=== PATIENT | male | born 1965 | race Caucasian/White ===

== ENCOUNTER 2018-05-25 07:17 | Day surgery (SDC) | payer OTHER ==
[~2018-05-25] VITALS: Ht 180.3 cm; Wt 81.0 kg
--- NOTE | 2018-05-25 09:16 | NUR ---
05/25/18 0916 Lety Baez PT REFUSED DRINKS.
== END 2018-05-25 09:16 | disposition home or self-care (01) ==
LOC: ORSCSDS 07:17
PROVIDERS: Internal Medicine Gastroenterology
PROC: 0DBK8ZX Excision of Ascending Colon, Via Natural or Artificial Opening Endoscopic, Diagnostic (ICD-10-PCS; principal; 2018-05-25 08:30)
DX: Z12.11 Encounter for screening for malignant neoplasm of colon (principal); D12.2 Benign neoplasm of ascending colon; K64.8 Other hemorrhoids; K57.30 Diverticulosis of large intestine without perforation or abscess without bleeding; Z83.71 Family history of colonic polyps; K21.9 Gastro-esophageal reflux disease without esophagitis; Z87.891 Personal history of nicotine dependence
CPT/HCPCS: 88305; J0330; J1980; J2405; J7120

== ENCOUNTER 2024-04-18 08:15 | Day surgery (SDC) | payer OTHER ==
[~2024-04-18] VITALS: Ht 180.3 cm; Wt 91.1 kg
[~2024-04-18 08:15] MED LIST: Lactated Ringer's 1,000 ML IV ONE; propofoL 40 ML IV ONE
[2024-04-18] MEDS ORDERED: Lactated Ringer's 1,000 ML IV ONE (09:42)
[2024-04-18 11:00] VITALS: BP 107/76
== END 2024-04-18 10:59 | disposition home or self-care (01) ==
LOC: ORSCSDS 08:15
PROVIDERS: Surgery
PROC: 0DJD8ZZ Inspection of Lower Intestinal Tract, Via Natural or Artificial Opening Endoscopic (ICD-10-PCS; principal; 2024-04-18 09:45)
DX: K57.30 Diverticulosis of large intestine without perforation or abscess without bleeding (principal); R10.9 Unspecified abdominal pain; Z86.0100 Personal history of colon polyps, unspecified; K21.9 Gastro-esophageal reflux disease without esophagitis; K64.8 Other hemorrhoids
CPT/HCPCS: J2704; J7120